=== PATIENT | female | born 1955 | race Caucasian/White ===

== ENCOUNTER 2017-03-13 09:51 | Emergency (ER) | payer SELFPAY ==
[2017-03-13 11:50] VITALS: BP 144/75
--- NOTE | 2017-03-13 12:32 | UC ---
Lower Extremity/Ankle HPI - HPI Summary HPI Summary: Pt noticed 2 spots on R foot instep last night. No pain, itching, or redness, but pt is scared of spiders and worried it may be related to when she stepped on a very large spider (with shoes and socks) 5 days ago. States she always wears shoes, even in the house. When she washed the area one spot bled a little bit and the other one oozed some clear fluid. - History of Current Complaint Chief Complaint: [place] Stated Complaint: SPIDER BITE Time Seen by Provider: 03/13/17 12:19 Hx Obtained From: Patient ?: No Onset/Duration: Still Present Severity Initially: Mild Severity Currently: Mild Aggravating Factor(s): Nothing Alleviating Factor(s): Nothing Able to Bear Weight: Yes - Allergies/Home Medications Allergies/Adverse Reactions: Allergies Allergy/AdvReac Type Severity Reaction Status Date / Time Indomethacin [From Indocin] Allergy Severe Headache Verified 03/13/17 10:38 Home Medications: Home Medications Calcium Carbonate (Antacid) [Tums] 500 mg PO DAILY PRN 03/13/17 [History Confirmed 03/13/17] Multiple Vitamins W/ Minerals [Multivitamin Adults] 1 tab PO DAILY 03/13/17 [ History Confirmed 03/13/17] PMH/Surg Hx/FS Hx/Imm Hx Endocrine History Of: Denies: Diabetes, Thyroid Disease Cardiovascular History Of: Denies: Cardiac Disorders, Hypertension Respiratory History Of: Denies: COPD, Asthma GI/ History Of: Denies: Ulcer, Kidney Stones - Surgical History Surgical History: Yes Surgery Procedure, Year, and Place: back surgery x2 - Family History Known Family History: Negative: Blood Disorder - Social History Occupation: Employed Full-time Lives: With Family Alcohol Use: Occasionally Substance Use Type: None Smoking Status (MU): Heavy Every Day Tobacco Smoker Type: Cigarettes Amount Used/How Often: 1 ppd Review of Systems Constitutional: Negative Skin: Other - spots on R foot Eyes: Negative ENT: Negative Respiratory: Negative Cardiovascular: Negative Gastrointestinal: Negative Genitourinary: Negative Motor: Negative Neurovascular: Negative Musculoskeletal: Negative Neurological: Negative Psychological: Negative All Other Systems Reviewed And Are Negative: Yes Physical Exam Triage Information Reviewed: Yes Appearance: Well-Appearing, No Pain Distress, Well-Nourished Vital Signs: Initial Vital Signs Temp 99.5 F 03/13/17 10:41 Pulse 93 03/13/17 10:41 Resp 16 03/13/17 10:41 BP 171/88 03/13/17 10:41 Pulse Ox 98 03/13/17 10:41 Vital Signs Reviewed: Yes Eye Exam: Normal Eyes: Positive: Conjunctiva Clear ENT Exam: Normal ENT: Positive: Normal ENT inspection, Hearing grossly normal, Pharynx normal, TMs normal Neck exam: Normal Neck: Positive: Supple, Nontender, No Lymphadenopathy Respiratory Exam: Normal Respiratory: Positive: Chest non-tender, Lungs clear, Normal breath sounds, No respiratory distress, No accessory muscle use Cardiovascular Exam: Normal Cardiovascular: Positive: RRR, No Murmur Musculoskeletal Exam: Normal Musculoskeletal: Positive: ROM Intact Neurological Exam: Normal Neurological: Positive: Alert Psychological Exam: Normal Skin Exam: Other - 2 superficial flap-like abrasions, both about 2mm wide, approx 1cm apart on instep of R foot. No swelling, erythema, or streaking. Lower Extremity Course/Dx - Differential Dx/Diagnosis Provider Diagnoses: R foot abrasions. Elevated blood pressure due to anxiety Discharge - Discharge Plan Condition: Stable Disposition: HOME Patient Education Materials: Abrasion (ED) Referrals: No Primary Care Phys,NOPCP [Primary Care Provider] - Additional Instructions: The small spots on your foot are NOT from a spider or insect bite, and the only potential danger they hold is the possibility of infection. Since they already appear to be healing I do not think there is any great risk of infection. However, if you see an area of growing redness or have significant pain, please come back right away.
== END 2017-03-13 12:30 | disposition home or self-care (01) ==
LOC: UCEAST 09:51
DX: S90.811A Abrasion, right foot, initial encounter (principal); W57.XXXA Bitten or stung by nonvenomous insect and other nonvenomous arthropods, initial encounter; Y93.9 Activity, unspecified; Y92.9 Unspecified place or not applicable; F41.9 Anxiety disorder, unspecified; R03.0 Elevated blood-pressure reading, without diagnosis of hypertension; F17.210 Nicotine dependence, cigarettes, uncomplicated
CPT/HCPCS: 99201; G0463